=== PATIENT | female | born 1940 | race Two or more races ===

== ENCOUNTER 2018-10-01 05:05 | Day surgery (SDC) | payer OTHER ==
[~2018-10-01 05:05] MED LIST: ASA81 MG; CELEXA20 MG PO; COZAAR25 MG; ENALAPRIL MALE2.5 MG; EVISTA60 MG; LOSARTAN-HCTZ1 EAC1 PO; OMEPRAZOLE10 MG; PERSANTINE25 MG; PLAVIX75 MG PO; ZANTAC15 MG/ML
== END 2018-10-01 13:35 | disposition home or self-care (01) ==
LOC: CIR.AMB 05:05
DX: K42.9 Umbilical hernia without obstruction or gangrene (principal)